=== PATIENT | male | born 1960 | race Caucasian/White ===

== ENCOUNTER 2021-01-06 16:50 | Emergency (ER) | payer BC ==
[2021-01-06] MEDS ORDERED: Sodium Chloride 0.9% 10 ML Syringe FLUSH PRN (17:10)
[2021-01-06] MEDS ORDERED: Prochlorperazine 10 MG/2 ML SDV IVPUSH ONE (17:10)
[2021-01-06] MEDS ORDERED: Enalaprilat 1.25 MG/ML SDV IVPUSH ONE (17:10)
--- NOTE | 2021-01-06 17:16 | EDM.PDOC ---
ED HPI GENERAL MEDICAL PROBLEM - General Chief Complaint: General Stated Complaint: MEDICAL VIA [facility] Time Seen by Provider: 01/06/21 17:05 Source of Information: Reports: Patient, Family, RN Notes Reviewed History Limitations: Reports: No Limitations - History of Present Illness INITIAL COMMENTS - FREE TEXT/NARRATIVE: 60-year-old gentleman presents emergency department day complaint of headache with nausea and vomiting, he was working at his job this evening sudden onset of dizziness feeling poorly EMS services were called found to be hypotensive markedly systolic blood pressure 230 - Related Data Allergies Allergy/AdvReac Type Severity Reaction Status Date / Time No Known Allergies Allergy Verified 01/06/21 17:04 Home Meds: Home Meds lisinopriL [Lisinopril] 10 mg PO DAILY #30 tablet 01/06/21 [Rx] Past Medical History - Past Health History Medical/Surgical History: Denies Medical/Surgical History - Infectious Disease History Infectious Disease History: Reports: Chicken Pox Social & Family History - Tobacco Use Tobacco Use Status *Q: Never Tobacco User - Caffeine Use Caffeine Use: Reports: Soda - Recreational Drug Use Recreational Drug Use: No ED ROS GENERAL - Review of Systems Review Of Systems: See Below Constitutional: Reports: No Symptoms HEENT: Reports: No Symptoms Respiratory: Reports: No Symptoms Cardiovascular: Reports: Lightheadedness GI/Abdominal: Reports: Nausea, Vomiting ED EXAM, GENERAL - Physical Exam Exam: See Below Exam Limited By: No Limitations General Appearance: Alert, WD/WN, Mild Distress Respiratory/Chest: No Respiratory Distress, Lungs Clear, Normal Breath Sounds, No Accessory Muscle Use, Chest Non-Tender Cardiovascular: Regular Rate, Rhythm, No Murmur GI/Abdominal: Soft, Non-Tender Course - Vital Signs Last Recorded V/S: Last Vital Signs Temp 95.7 F L 01/06/21 17:04 Pulse 66 01/06/21 18:17 Resp 18 01/06/21 17:04 BP 196/118 H 01/06/21 18:17 Pulse Ox 96 01/06/21 17:04 - Orders/Labs/Meds Orders: Active Orders 24 hr Category Date Time Status Cardiac Monitoring [RC] .As Directed Care 01/06/21 17:10 Active Peripheral IV Care [RC] . DIRECTED Care 01/06/21 17:11 Active Sodium Chloride 0.9% [Saline Flush] Med 01/06/21 17:10 Active 10 ml FLUSH ASDIRECTED PRN Antihypertensive Medications Reflex [OM.PC] Stat Ot 01/06/21 17:10 Ordered ED Antiemetic Medication Reflex [OM.PC] Stat Ot 01/06/21 17:10 Ordered Peripheral IV Insertion Adult [OM.PC] Stat Ot 01/06/21 17:10 Ordered Saline Lock Insert [OM.PC] Stat Ot 01/06/21 17:10 Ordered Medication Orders Sodium Chloride (Sodium Chloride 0.9% 10 Ml Syringe) 10 ml FLUSH ASDIRECTED PRN PRN Reason: Keep Vein Open Last Admin: 01/06/21 18:20 Dose: 10 ml Documented by: ROBEL Labs: Laboratory Tests 01/06/21 01/06/21 Range/Units 17:00 17:00 WBC 7.0 (4.5-11.0) K/uL RBC 4.89 (4.30-5.90) M/uL Hgb 14.6 (12.0-15.0) g/dL Hct 41.3 (40.0-54.0) % MCV 85 (80-98) fL MCH 30 (27-31) pg MCHC 35 (32-36) % Plt Count 151 (150-400) K/uL Neut % (Auto) 82.2 H (36-66) % Lymph % (Auto) 10.7 L (24-44) % Clinch % (Auto) 4.1 (2-6) % Eos % (Auto) 2.3 (2-4) % Baso % (Auto) 0.7 (0-1) % Sodium 139 L (140-148) mmol/L Potassium 3.1 L (3.6-5.2) mmol/L Chloride 102 (100-108) mmol/L Carbon Dioxide 27 (21-32) mmol/L Anion Gap 13.1 (5.0-14.0) mmol/L BUN 16 (7-18) mg/dL Creatinine 1.2 (0.8-1.3) mg/dL Est Cr Clr Drug Dosing 61.20 mL/min Estimated GFR (MDRD) > 60 (>60) Glucose 161 H (74-106) mg/dL Calcium 8.7 (8.5-10.1) mg/dL Total Bilirubin 0.6 (0.2-1.0) mg/dL AST 20 (15-37) U/L ALT 27 (12-78) U/L Alkaline Phosphatase 119 H (46-116) U/L Troponin I < 0.017 (0.000-0.056) ng/mL Total Protein 7.2 (6.4-8.2) g/dL Albumin 4.0 (3.4-5.0) g/dL Globulin 3.2 (2.3-3.5) g/dL Albumin/Globulin Ratio 1.3 (1.2-2.2) Meds: Medications Generic Name Dose Route Start Last Admin Trade Name Freq PRN Reason Stop Dose Admin Sodium Chloride 10 ml 01/06/21 17:10 01/06/21 18:20 Sodium Chloride 0.9% 10 Ml Syringe FLUSH 10 ml ASDIRECTED PRN Administration Keep Vein Open Discontinued Medications Generic Name Dose Route Start Last Admin Trade Name Freq PRN Reason Stop Dose Admin Enalaprilat 1.25 mg 01/06/21 17:10 01/06/21 17:57 Enalaprilat 1.25 Mg/Ml Sdv IVPUSH 01/06/21 17:11 1.25 mg ONETIME ONE Administration Prochlorperazine Edisylate 5 mg 01/06/21 17:10 01/06/21 17:53 Prochlorperazine 10 Mg/2 Ml Sdv IVPUSH 01/06/21 17:11 5 mg ONETIME ONE Administration Departure - Departure Time of Disposition: 18:32 Disposition: Home, Self-Care 01 Condition: Fair Clinical Impression: Hypertensive urgency - Discharge Information Prescriptions: lisinopriL [Lisinopril] 10 mg PO DAILY #30 tablet Referrals: PCP,None [Primary Care Provider] - Forms: ED Department Discharge Additional Instructions: start lisinopril and follow up with your doctor in 3 to 5 days Sepsis Event Note (ED) - Evaluation Sepsis Screening Result: No Definite Risk - Focused Exam Vital Signs: Vital Signs Temp Pulse Resp BP BP BP Pulse Ox 01/06/21 18:17 66 196/118 H 01/06/21 18:14 66 188/115 H 01/06/21 18:09 65 191/107 H 01/06/21 18:07 69 196/109 H 01/06/21 18:05 72 207/114 H 01/06/21 18:03 70 209/113 H 01/06/21 18:02 69 205/117 H 01/06/21 17:57 214/122 H 01/06/21 17:04 95.7 F L 69 18 238/130 H 96 01/06/21 17:00 95.7 F L 69 18 238/130 H 96 - My Orders Last 24 Hours: My Active Orders 01/06/21 17:10 Cardiac Monitoring [RC] .As Directed Sodium Chloride 0.9% [Saline Flush] 10 ml FLUSH ASDIRECTED PRN Antihypertensive Medications Reflex [OM.PC] Stat ED Antiemetic Medication Reflex [OM.PC] Stat Peripheral IV Insertion Adult [OM.PC] Stat Saline Lock Insert [OM.PC] Stat 01/06/21 17:11 Peripheral IV Care [RC] . DIRECTED - Assessment/Plan Last 24 Hours: My Active Orders 01/06/21 17:10 Cardiac Monitoring [RC] .As Directed Sodium Chloride 0.9% [Saline Flush] 10 ml FLUSH ASDIRECTED PRN Antihypertensive Medications Reflex [OM.PC] Stat ED Antiemetic Medication Reflex [OM.PC] Stat Peripheral IV Insertion Adult [OM.PC] Stat Saline Lock Insert [OM.PC] Stat 01/06/21 17:11 Peripheral IV Care [RC] . DIRECTED Plan: Assessment Acuity = acute Site and laterality = hypertensive urgency Etiology = unknown Manifestations = none Location of injury = Home Lab values = k low 3.1 with hypokalemia cbc and bmp unremarkable troponin negative Plan start lisinopril 10 mg daily f/u pcp 3 to 5 days This note was dictated using [employer] voice recognition software please call with any questions on syntax or grammar.
--- NOTE | 2021-01-06 17:47 | CRLCR ---
For Patients: As a result of the Century Cures Act, medical imaging exams and procedure reports are released immediately into your electronic medical record. You may view this report before your referring provider. If you have questions, please contact your health care provider. INDICATION: chest pain TECHNIQUE: Chest 1 view. COMPARISON: None. FINDINGS: Cardiovascular and mediastinum: Heart size and vasculature are normal in caliber and appearance. Mediastinum is within normal limits. Lungs and pleural space: Lungs are clear. No sign of infiltrate or mass. No sign of pleural effusion. No pneumothorax. Bones and soft tissues: No significant findings. IMPRESSION: Unremarkable chest. Dictated by: Anant Pressley MD @ 01/06/2021 17:46:53 (Electronically Signed)
== END 2021-01-06 18:58 | disposition home or self-care (01) ==
LOC: JP.ED 16:50
DX: I16.0 Hypertensive urgency (principal); Z79.899 Other long term (current) drug therapy
CPT/HCPCS: 36415; 71045; 80053; 84484; 85025; 96374; 96375; 99284; J0780

== ENCOUNTER 2021-01-08 12:03 | Emergency (ER) | payer BC ==
[2021-01-08] MEDS ORDERED: Lisinopril 20 MG Tab PO SCH (13:45)
--- NOTE | 2021-01-08 17:20 | EDM.PDOC ---
ED HPI GENERAL MEDICAL PROBLEM - General Chief Complaint: Cardiovascular Problem Stated Complaint: HIGH BLOOD PRESSURE Time Seen by Provider: 01/08/21 12:30 Source of Information: Reports: Patient History Limitations: Reports: No Limitations - History of Present Illness INITIAL COMMENTS - FREE TEXT/NARRATIVE: This is a 60-year-old male without known significant past medical history who presents from clinic with concerns of hypertension. He was seen in the ER several days ago after presenting with an episode of vertigo. Found to be hypertensive at this time. Started on a low-dose of lisinopril with plan for follow-up in the clinic today, however was noted to be markedly hypertensive there with ongoing dizziness so was referred to the ER. Reports that over the last several days he has had intermittent vertigo symptoms, describes a sensation of being on a ship. The initial episode was prior to his ED evaluation, at that time he was unable to ambulate due to the symptoms. Since this time he reports intermittent symptoms that do not seem to be triggered. May last several minutes. No associated headache or neck pain. No history of similar symptoms in the past. He is otherwise feeling well. He has not seen a physician in over 20 years. No history of stroke. - Related Data Allergies Allergy/AdvReac Type Severity Reaction Status Date / Time No Known Allergies Allergy Verified 01/08/21 13:22 Home Meds: Home Meds lisinopriL [Lisinopril] 10 mg PO DAILY #30 tablet 01/06/21 [Rx] amLODIPine [Norvasc] 5 mg PO DAILY #30 tab 01/08/21 [Rx] Past Medical History - Past Health History Medical/Surgical History: Denies Medical/Surgical History Musculoskeletal History: Reports: None Endocrine/Metabolic History: Reports: Obesity/BMI 30+ - Infectious Disease History Infectious Disease History: Reports: Chicken Pox - Past Surgical History Head Surgeries/Procedures: Reports: None HEENT Surgical History: Reports: Tonsillectomy Endocrine Surgical History: Reports: None Musculoskeletal Surgical History: Reports: Other (See Below) Other Musculoskeletal Surgeries/Procedures:: left leg has metal plate Dermatological Surgical History: Reports: None Social & Family History - Tobacco Use Tobacco Use Status *Q: Never Tobacco User Second Hand Smoke Exposure: No - Caffeine Use Caffeine Use: Reports: Soda - Recreational Drug Use Recreational Drug Use: No ED ROS GENERAL - Review of Systems Review Of Systems: See Below Constitutional: Reports: No Symptoms HEENT: Reports: No Symptoms Respiratory: Reports: No Symptoms Cardiovascular: Reports: No Symptoms Endocrine: Reports: No Symptoms GI/Abdominal: Reports: No Symptoms : Reports: No Symptoms Musculoskeletal: Reports: No Symptoms Skin: Reports: No Symptoms Neurological: Reports: Other (Vertigo) Psychiatric: Reports: No Symptoms Hematologic/Lymphatic: Reports: No Symptoms Immunologic: Reports: No Symptoms ED EXAM, GENERAL - Physical Exam Exam: See Below Exam Limited By: No Limitations General Appearance: Alert Ears: Normal External Exam Nose: Normal Inspection Throat/Mouth: Normal Inspection Head: Atraumatic, Normocephalic Neck: Normal Inspection Respiratory/Chest: Lungs Clear Cardiovascular: Regular Rate, Rhythm GI/Abdominal: Normal Bowel Sounds, Soft, Non-Tender Back Exam: Normal Inspection, Full Range of Motion Extremities: Normal Inspection Neurological: Alert, Oriented, CN II-XII Intact, Normal Cognition, No Motor/Sensory Deficits, Other (Speech is fluid. Finger-nose testing is smooth and normal. No pronator drift. Stable gait.) Psychiatric: Normal Affect, Normal Mood Skin Exam: Warm, Dry Course - Vital Signs Last Recorded V/S: Last Vital Signs Temp 36.3 C 01/08/21 13:20 Pulse 64 01/08/21 16:47 Resp 17 01/08/21 15:33 BP 192/106 H 01/08/21 16:47 Pulse Ox 96 01/08/21 16:47 - Orders/Labs/Meds Orders: Active Orders 24 hr Category Date Time Status lisinopriL [Prinivil] Med 01/08/21 13:45 Active 20 mg PO DAILY Medication Orders Lisinopril (Lisinopril 20 Mg Tab) 20 mg PO DAILY [facility] Last Admin: 01/08/21 14:32 Dose: 20 mg Documented by: ANABELA Meds: Medications Generic Name Dose Route Start Last Admin Trade Name Freq PRN Reason Stop Dose Admin Lisinopril 20 mg 01/08/21 13:45 01/08/21 14:32 Lisinopril 20 Mg Tab PO 20 mg DAILY [facility] Administration - Re-Assessments/Exams Free Text/Narrative Re-Assessment/Exam: This is a 60-year-old male who presents with concerns of hypertension and vertigo. On exam he is remarkably hypertensive. His neurologic exam is normal. He has not seen a doctor in some time, nearly 2 decades. I suspect that he has essential hypertension. Primary concern for his ER visit currently is intermittent, nontriggered vestibular syndrome. Notably his neurologic exam is reassuring. Although episodic symptoms like this typically are due to a peripheral etiology, given his high blood pressure some concerning features and history we discussed MR imaging to more definitively rule out stroke. Patient preference is to go ahead with this. Screening labs were performed on his recent ER visit and were not repeated. MR small strokes and chronic microvascular change but no acute lesion. Prevention of future stroke/risk reduction can addressed at next primary care visit. We have increased his lisinopril to 20 mg. Added amlodipine. Further BP medication adjustment per PCP. 01/08/21 17:35 Departure - Departure Time of Disposition: 17:35 Disposition: Home, Self-Care 01 Clinical Impression: Vertigo, Essential hypertension Instructions: Vertigo, Hypertension, Adult Referrals: PCP,None [Primary Care Provider] - Forms: ED Department Discharge Additional Instructions: As discussed, please increase your lisinopril dosage to 20 mg daily. We are adding another medication called amlodipine to help with your blood pressure. Please follow-up with your primary doctor in about a week to review your blood pressure management and MRI results. Thank you for trusting us to care for you today. Sepsis Event Note (ED) - Focused Exam Vital Signs: Vital Signs Temp Pulse Resp BP BP Pulse Ox 01/08/21 16:47 64 192/106 H 96 01/08/21 15:33 59 L 17 194/97 H 95 01/08/21 14:32 176/126 H 01/08/21 13:20 36.3 C 66 10 L 221/123 H 94 L 01/08/21 12:41 36.3 C 66 10 L 221/123 H 94 L - My Orders Last 24 Hours: My Active Orders 01/08/21 13:45 lisinopriL [Prinivil] 20 mg PO DAILY - Assessment/Plan Last 24 Hours: My Active Orders 01/08/21 13:45 lisinopriL [Prinivil] 20 mg PO DAILY
--- NOTE | 2021-01-08 17:22 | CRLMR ---
For Patients: As a result of the Cures Act, medical imaging exams and procedure reports are released immediately into your electronic medical record. You may view this report before your referring provider. If you have questions, please contact your health care provider. Dictation for this exam included within the brain MRI report from the same date. Dictated by John Champion MD @ 01/08/2021 5:21:56 PM (Electronically Signed)
--- NOTE | 2021-01-08 17:22 | CRLMR ---
For Patients: As a result of the Century Cures Act, medical imaging exams and procedure reports are released immediately into your electronic medical record. You may view this report before your referring provider. If you have questions, please contact your health care provider. INDICATION: Vertigo. TECHNIQUE: Brain MRI without contrast. The following sequences were obtained: Sagittal T1 weighted sequence. DWI and ADC mapping sequences. Axial FLAIR, GRE T2* and GILLIAN T2 weighted sequences. Magnetic Resonance Angiography of the head and neck without contrast. The following sequences were obtained: 3D Time of Flight MRA sequence of the intracranial circulation. Maximum Intensity Reconstructions are provided. COMPARISON: None. FINDINGS: MRI Head: No acute infarction. No acute or chronic intracranial blood products. Small chronic cortical infarct right middle frontal gyrus. Small area of chronic white matter infarct left anterior centrum semiovale. Small chronic lacunar infarcts right-sided basal ganglia and bilateral thalami. Patchy FLAIR hyperintensities within the supratentorial white matter, typical for chronic microvascular ischemic change. No hydrocephalus or extra-axial collections. The pituitary gland, parasellar structures and optic chiasm are normal. Posterior fossa is normal. The orbital contents are normal. No calvarial or skull base marrow signal abnormality. No obstructive sinus disease. A right partial mastoid effusion. No extracranial soft tissue findings. MRA Head: No proximal large vessel occlusion. The anterior cerebral arteries are patent. The middle cerebral arteries are patent. The posterior cerebral arteries are patent. The intradural vertebral arteries and basilar artery are patent. The intracranial internal carotid arteries are patent. No aneurysm or high flow vascular malformation. MRA Neck: The visualized portions of the cervical carotid and vertebral arteries are patent. IMPRESSION: MRI Head: 1. No acute infarction or other acute intracranial pathology. 2. Small chronic cortical infarct right middle frontal gyrus. Small area of chronic white matter infarct left anterior centrum semiovale. Small chronic lacunar infarcts right-sided basal ganglia and bilateral thalami. 3. Mild burden of chronic microvascular ischemic changes within the supratentorial white matter. MRA Head: 1. No proximal large vessel occlusion or flow-limiting stenosis involving the major intracranial arteries. No aneurysm. MRA Neck: 1. No flow-limiting stenosis involving the visualized cervical arterial circulation. Dictated by John Champion MD @ 01/08/2021 5:21:39 PM (Electronically Signed)
--- NOTE | 2021-01-08 17:24 | CRLMR ---
For Patients: As a result of the Cures Act, medical imaging exams and procedure reports are released immediately into your electronic medical record. You may view this report before your referring provider. If you have questions, please contact your health care provider. Dictation for this exam included within the brain MRI report from the same date. Dictated by John Champion MD @ 01/08/2021 5:22:13 PM (Electronically Signed)
== END 2021-01-08 17:50 | disposition home or self-care (01) ==
LOC: JP.ED 12:03
DX: R42 Dizziness and giddiness (principal); I10 Essential (primary) hypertension; E66.9 Obesity, unspecified; Z68.37 Body mass index [BMI] 37.0-37.9, adult; Z79.899 Other long term (current) drug therapy
CPT/HCPCS: 70544; 70547; 70551; 99284; A9270